=== PATIENT | female | born 1935 | race Caucasian/White ===

== ENCOUNTER 2017-06-08 20:29 | Emergency (ER) | payer OTHER, BC ==
[2017-06-08 22:33] LABS: CALCIUM 9.2 mg/dL (8.5-10.1); CARBON DIOXIDE 26.5 mmol/L (21-32); CHLORIDE SERUM 104 mmol/L (98-107); CREATININE SERUM 1.1 mg/dL (0.6-1.0); GLUCOSE SERUM 93 mg/dL (74-106); POTASSIUM SERUM 4.2 mmol/L (3.5-5.1); SODIUM SERUM 139 mmol/L (136-145)
[2017-06-08 22:39] LABS: ALBUMIN 3.5 g/dL (3.4-5.0); ALKALINE PHOSPHATASE 57 U/L (46-116); ALT/SGPT 18 U/L (14-59); AST/SGOT 21 U/L (15-37); BILIRUBIN TOTAL 0.49 mg/dL (0.20-1.00); LIPASE 89 IU/L (73-393); TOTAL PROTEIN, SERUM 7.3 g/dL (6.4-8.2)
[2017-06-08 22:48] LABS: BASOPHIL % 2.7 % (0-2); PLATELET COUNT 248 x10^3mcL (130-400); RED CELL DISTRIBUTION WIDTH 15.3 % (11.5-14.5)
[2017-06-08 23:47] LABS: microscopic required? NO
[2017-06-09 00:01] LABS: urine erythrocyte NEGATIVE (NEGATIVE)
[2017-06-09 00:25] VITALS: BP 120/73
== END 2017-06-09 00:25 | disposition home or self-care (01) ==
LOC: ED 20:29
PROVIDERS: Emergency Medicine
DX: N23 Unspecified renal colic (principal); Z88.1 Allergy status to other antibiotic agents
CPT/HCPCS: 83880; J2405